=== PATIENT | female | born 1980 | race Caucasian/White ===

== ENCOUNTER 2022-09-10 13:05 | Outpatient (REF) | payer OTHER, SELFPAY ==
[2022-09-10 15:31] LABS: Erythrocyte Sedimentation Rate 7 MM/HR (0-20)
[2022-09-10 15:41] LABS: Alanine Aminotransferase 78 U/L (0-31); Albumin Level 3.5 g/dL (3.5-5.0); Alkaline Phosphatase 157 U/L (39-117); Aspartate Amino Transferase 218 U/L (5-31); Bilirubin Direct 0.5 mg/dL (0.0-0.5); Bilirubin Total 1.2 mg/dL (0.0-1.0)
[2022-09-13 15:54] LABS: Aldolase 15.2 U/L (<=8.1)
== END 2022-09-10 13:06 | disposition home or self-care (01) ==
LOC: HO.LAB 13:05
PROVIDERS: PCP Family Medicine; Visit Provider Psychiatry & Neurology Neurology
DX: G72.9 Myopathy, unspecified (principal); G62.9 Polyneuropathy, unspecified
CPT/HCPCS: 36415; 80076; 82085; 82550; 85652